=== PATIENT | male | born 1970 | race Caucasian/White ===

== ENCOUNTER → 2017-08-24 10:34 | Outpatient (CLI) | payer OTHER, SELFPAY ==
[2017-08-25 13:25] LABS: M R Staph aureus DNA By PCR Negative (Negative); Probe Check PASS; Specimen Processing Control PASS
== END ==
PROVIDERS: Family Provider Internal Medicine; PCP Internal Medicine; Visit Provider Internal Medicine
DX: M79.661 Pain in right lower leg (principal)
CPT/HCPCS: 87641

== ENCOUNTER → 2017-09-02 12:26 | Outpatient (CLI) | payer OTHER, SELFPAY ==
--- NOTE | 2017-09-02 12:29 | US_ITS ---
STUDY: SUPERFICIAL ULTRASOUND - LOCALIZED SUPERFICIAL ULTRASOUND OF THE POSTERIOR ANKLE. REASON FOR EXAM: Male, 47 years old. Wound above the right heel. TECHNIQUE: A superficial ultrasound was performed with real-time and static tipton-scale imaging. COMPARISON: None. FINDINGS: There is heterogeneous soft tissue thickening, 2.7 cm size, in the area of clinical concern but whether this represents hematoma, mass, inflammatory process, or even an area where the patient has previous history of muscle graft, cannot be determined. If clinically indicated, MRI may be more useful. Electronically Signed: Raul Posey MD at 16:49 EDT , Service support , US/Ext Non Vasc Limited/Soft Tiss
== END ==
PROVIDERS: Family Provider Internal Medicine; PCP Internal Medicine; Visit Provider Internal Medicine
DX: M79.661 Pain in right lower leg (principal)
CPT/HCPCS: 76882

== ENCOUNTER → 2018-05-02 12:34 | Outpatient (CLI) | payer OTHER, SELFPAY ==
--- NOTE | 2018-05-02 12:39 | MRI_ITS ---
STUDY: MRI LUMBAR SPINE WITH AND WITHOUT CONTRAST REASON FOR EXAM: Male, 47 years old. Paresthesia. Right leg pain and numbness since lumbar surgery at L5-S1 in 2016. TECHNIQUE: Standardized fat and water weighted pulse sequences were obtained in the sagittal and axial planes. 10 ml of Gadavist contrast material was administered for the contrast portion of the examination. COMPARISON: 07/02/2017. FINDINGS: T12-L1: (Sagittal only). T12 inferior endplate is partially cut off. The T12-L1 disc space is partially cut off. Normal L1 superior endplate. Normal visualized disc and hydration. Normal disc morphology. Normal central canal and bilateral intervertebral neural foramina. Normal lumbar lordosis. There is no substantial scoliosis. Normal conus medullaris that terminates at the upper L1 vertebral body level. L1-2: Normal endplates. Normal disc height, hydration and morphology. Normal bilateral facet joints. Normal central canal and bilateral lateral recesses. Normal bilateral intervertebral neural foramina. L2-3: Normal endplates. Normal disc height, hydration and morphology. Normal bilateral facet joints. Normal central canal and bilateral lateral recesses. Normal bilateral intervertebral neural foramina. L3-4: Anterior marginal spurs. Modic type II degenerative vertebral marrow fatty changes underneath the vertebral endplates. Moderately pronounced disc space height narrowing. Small posterior bulging disc. Mild central canal stenosis with an AP canal diameter of 10 mm. Normal bilateral lateral recesses. Normal facet joints. Normal bilateral intervertebral neural foramina. L4-5: Disc implant inside the disc space. Pedicular screws and rods from previous posterior decompression and fusion. Normal central canal and bilateral lateral recesses. Normal bilateral intervertebral neural foramina L5-S1: Metallic plate with transfixing screws and disc implant. Mild disc space height narrowing. Mild degenerative retrolisthesis of L5 on S1. Normal tapered narrowing of the central canal. Mild degenerative facet arthropathy. Moderate stenosis of the bilateral intervertebral neural foramina. Normal visualized sacral ala. Normal visualized paraspinous soft tissue structures. No enhancing lesions intradurally and extradurally. MRI/Spine Lumbar W/WO Contrast IMPRESSION: 1. No MRI evidence of lumbar extruded disc fragment. 2. Small L3-L4 posterior bulging disc, moderately pronounced disc space height narrowing and mild central canal stenosis. 3. Mild degenerative retrolisthesis of L5 on S1 with mild disc space height narrowing and moderate stenosis of the bilateral intervertebral neural foramina. 4. Interval placement of disc implants inside the L4-L5 and L5-S1 disc spaces. 5. Interval placement of anterior metallic plate with transfixing screw at L5-S1. 6. Interval placement of pedicular screws and rods at L4 and L5. 7. No significant interval change when compared to 05/07/2016. Electronically Signed: Chemo Quinones MD at 14:30 EST , Service support ,
== END ==
PROVIDERS: Family Provider Internal Medicine; PCP Internal Medicine; Referring Provider Internal Medicine; Visit Provider Internal Medicine
DX: R20.2 Paresthesia of skin (principal)
CPT/HCPCS: 72158; A9585

== ENCOUNTER → 2018-06-10 13:24 | Outpatient (CLI) | payer SELFPAY ==
--- NOTE | 2018-06-10 13:32 | CT_ITS ---
STUDY: CT CHEST WITHOUT CONTRAST REASON FOR EXAM: Male, 47 years old. Family history of cardiovascular disease RADIATION DOSAGE (If Supplied By Facility): CTDIvol = ( 12.19 ) mGy, DLP = ( 292.55 ) mGycm TECHNIQUE: Transaxial imaging was performed without the administration of intravenous contrast material. Individualized dose optimization techniques were used for this CT. COMPARISON: None. FINDINGS: The lungs are normal in their visualized extent. There is no demonstrated pleural abnormality. Heart size is normal. Small volume pericardial effusion. Mild degree of atherosclerosis seen in the LAD and circumflex territories. Agatston score reported as 37.0 (75th percentile). Normal mediastinum. Normal hilar regions. Normal unenhanced pulmonary arteries. Normal aorta arch and descending thoracic aorta. Normal visualized osseous structures. There is no demonstrated abnormality of the visualized upper abdomen. CT/Limited Chest CT w/CCTA IMPRESSION: 1. Trace pericardial effusion. 2. Coronary artery atherosclerosis. 3. No pulmonary nodule/mass. Electronically Signed: Sherman Moncada MD at 9:45 EST , Service support ,
[2018-06-10 13:43] VITALS: BP 134/93; PULSE 70; RESP 18; O2SAT 99; BMI 30.2
--- NOTE | 2018-06-10 15:41 | CA.SCORE ---
Calcium Scoring Date of Study:: 06/10/18 Coronary Calcium Scoring: Coronary calcium scoring. High-resolution computed tomographic imaging of the chest was performed on 06/10/2018 with particular attention paid to the coronary arteries. Images from the examination were analyzed for the presence and extent of coronary artery calcification using the coronary calcification quantification software. The patient tolerated the procedure well and there were no complications. The results of the coronary calcification analysis are provided below; Coronary artery Left main score 0 Left anterior descending artery score 2.1 Left circumflex artery score 34.8 Right coronary artery score 0 Total calcium score with a Agagston scale 37. The above places the patient at the 75 percentile ranking for age and sex. The above is indicative of minimal atherosclerotic plaquing suggesting that significant coronary artery disease is very unlikely.
== END ==
PROVIDERS: Family Provider Internal Medicine; PCP Internal Medicine; Referring Provider Internal Medicine; Visit Provider Internal Medicine
DX: Z82.49 Family history of ischemic heart disease and other diseases of the circulatory system (principal)
CPT/HCPCS: 75571; 76380

== ENCOUNTER → 2019-05-05 12:32 | Outpatient (CLI) | payer OTHER, SELFPAY ==
[2018-06-10 13:43] VITALS: BMI 30.2
--- NOTE | 2019-05-05 12:36 | RAD_ITS ---
STUDY: X-RAY - LUMBAR SPINE REASON FOR EXAM: Male, 48 years old. RIGHT SIDE PAIN AND WEAKNESS. RECENT LAMINECTOMY, HX OF A SPINAL FUSION WELL. TECHNIQUE: 5 view(s) of the lumbar spine were obtained. COMPARISON: None FINDINGS: Normal lumbar lordosis. There is no substantial scoliosis. There is a normal alignment of the vertebrae. The patient is status post anterior fusion from L4 to S1 with anterior screw at the anterior aspect of the L4 and S1. There is multilevel endplate spondylosis of the lumbar vertebrae. There is narrowing of disc space at L3-L4. There is no demonstrated fracture. There is disc prosthesis at L4-L5. The soft tissue structures are unremarkable. RAD/L/S Spine Min 4 Views IMPRESSION: Postoperative changes at L4-S1. Spondylosis/degenerative disease more severe at L3-L4. No acute fracture or spondylolisthesis. Electronically Signed: Mariela Ewing MD at 1:22 EST , Service support ,
== END ==
PROVIDERS: Family Provider Internal Medicine; PCP Internal Medicine; Referring Provider Internal Medicine; Visit Provider Internal Medicine
DX: M48.062 Spinal stenosis, lumbar region with neurogenic claudication (principal)
CPT/HCPCS: 72110

== ENCOUNTER → 2019-06-02 06:03 | Outpatient (CLI) | payer OTHER, SELFPAY ==
[2018-06-10 13:43] VITALS: BMI 30.2
--- NOTE | 2019-06-02 12:25 | NEURO ---
NCS and/or EMG Patient Report Ordering Doctor: Susanne Gutierres DATE OF SERVICE: 06/02/19 Abisai Holley is a 48-year-old male presents for electrodiagnostic testing of the right lower limb. He reports numbness and tingling in the right foot with a burning sensation. Symptoms are aggravated with prolonged standing and walking. He reports having spinal surgery in the past. Electrodiagnostic findings: Right peroneal motor nerve demonstrates normal distal latency with reduced amplitude and normal conduction velocity. Normal right tibial motor response. H reflex normal bilaterally. Prolonged right tibial F wave is noted. Sensory latencies are prolonged in the right sural and right medial plantar nerves. Needle EMG testing reveals 1+ fibrillations in the right anterior tibialis and right peroneus longus. There is a decreased recruitment pattern in the right anterior tibialis. 1+ polyphasic motor units in the right peroneus longus and right gastrocnemius. 1+ fibrillations are noted in the right lumbar paraspinals. Electrodiagnostic impression: This is an abnormal study in the right lower limb. 1. 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 Would consider correlation with lumbar spine imaging. If there are any further questions, please do not hesitate to contact me.
== END ==
PROVIDERS: Family Provider Internal Medicine; PCP Internal Medicine; Referring Provider Internal Medicine; Visit Provider Internal Medicine
DX: R20.2 Paresthesia of skin (principal)
CPT/HCPCS: 95886; 95910

== ENCOUNTER → 2019-10-06 | Outpatient (CLI) | payer OTHER, SELFPAY ==
[2018-06-10 13:43] VITALS: BMI 30.2
--- NOTE | 2019-10-06 10:00 | RAD_ITS ---
STUDY: X-RAY - LEFT SHOULDER REASON FOR EXAM: Male, 49 years old. FELL INTO DITCH WHILE WALKING DOG TECHNIQUE: 4 view(s) of the shoulder. COMPARISON: None. FINDINGS: Normal glenohumeral articulation. Normal acromioclavicular joint. Normal acromion. Normal humeral head and visualized proximal humerus. The soft tissue structures are unremarkable. Normal visualized pulmonary apex. RAD/Shoulder min 2 Views IMPRESSION: Normal x-ray examination of the shoulder. Electronically Signed: Kyle Larson, at 10:27 EDT , Service support ,
== END | disposition home or self-care (01) ==
LOC: HPRAD 09:57
PROVIDERS: PCP Internal Medicine; Referring Provider Internal Medicine; Visit Provider Internal Medicine
DX: M25.512 Pain in left shoulder (principal)
CPT/HCPCS: 73030

== ENCOUNTER → 2020-07-26 12:52 | Outpatient (CLI) | payer OTHER, SELFPAY ==
[2018-06-10 13:43] VITALS: BMI 30.2
--- NOTE | 2020-07-26 12:57 | CT_ITS ---
STUDY: CTA CHEST REASON FOR EXAM: Male, 50 years old. CHEST PAIN RADIATION DOSAGE (If Supplied By Facility): CTDIvol = ( 11.6 ) mGy, DLP = ( 516.61 ) mGycm TECHNIQUE: The examination was performed with the intravenous administration of IV 100mL Isovue-370. Post-processing of the angiographic images was performed, with multiplanar reformation and 3D reconstruction. Individualized dose optimization techniques were used for this CT. COMPARISON: Comparison is made with prior examination dated 06/10/2018. FINDINGS: Normal enhancement of the main pulmonary artery and right and left pulmonary arteries. Normal enhancement of the bilateral peripheral pulmonary arteries. There is no demonstrated pulmonary embolism. Normal thoracic aorta and visualized great vessels. There is no demonstrated aortic dissection. Normal heart and pericardium. Normal mediastinum. Normal hilar regions. Normal visualized trachea and bronchi. The lungs are well expanded. Normal pulmonary parenchyma. Normal pleura. Normal chest wall structures. Normal osseous structures. Normal visualized upper abdomen. CT/CTA Chest W/WO Contrast IMPRESSION: Normal CTA chest examination, without a demonstrated pulmonary embolism or arterial dissection. Electronically Signed: Kyle Larson MD at 13:45 EDT , Service support ,
--- NOTE | 2020-07-26 13:18 | VDLE_ITS ---
Reason For Study: Right leg swelling RIGHT GSV is normal. CFV is compressible, spontaneous, phasic, competent and demonstrates normal augmentation. FV is compressible, spontaneous, phasic, competent and demonstrates normal augmentation. POP V is compressible, spontaneous, phasic, competent and demonstrates normal augmentation. T/P Trunk is compressible. PTV is compressible. RT PerV is compressible. Nonvascular structure noted in the right proximal calf measuring approximently 2.24 x 1.99 cm. Procedure This is a venous duplex using B-mode, color flow and spectral Doppler. Exam performed in department. A preliminary report was called and/or faxed to [facility]. Interpretation Summary There is no evidence of right lower extremity deep vein thrombosis. Right great saphenous vein appears patent and compressible segmentally. Complex solid cystic non-vascular structure right proximal calf 2.24 x 1.99cm. Clinical correlation would be appropriate. Ordering Physician: Susanne Gutierres Referring Physician: Susanne Gutierres Performed By: Mary Lou Jarrett RVT
== END ==
PROVIDERS: PCP Internal Medicine; Referring Provider Internal Medicine; Visit Provider Internal Medicine
DX: M79.89 Other specified soft tissue disorders (principal); R07.9 Chest pain, unspecified
CPT/HCPCS: 71275; 93971; Q9967

== ENCOUNTER 2021-08-04 09:30 | Outpatient (RCR) | payer OTHER, SELFPAY ==
--- NOTE | 2021-07-09 11:04 | HP.PTEVAL_ITS ---
Patient's Visit Information VISHNU STRICKLAND is a 51 year old M referred to Physical Therapy by Dr. Susanne Gutierres MD with a diagnosis of L shoulder strain. Date of Evaluation: 07/09/21 Physical Therapist: Phong Amaya, PT, ATC - Visit Plan Frequency: 2-3x /Week Duration: 4-6 Weeks Plan: L shoulder rotator cuff strengthening, scap stab ex's, UBE, and HEP - Subjective Pt reports he injured his L shoulder a couple years ago while walking his dog. Pt notes his dog pulled really hard as it saw something, and pt notes he had severe pain afterwards. Pt notes he was treated by his doctor with cortisone injections and ex's and slowly felt a little better. Pt notes the same episode occurred 2 months ago which caused all of his pain to return. Pt notes he was attempting to lift his tool bucket at work 2 weeks ago which resulted in a popping sensation in the L shoulder. Pt also notes he has fallen on the ice a couple of times recently. Pt notes ail of this has resulted in pain. Pt is L hand dominant. Pt notes he had x-rays which revealed OA. Pt notes his doctor is currently in the process of ordering an MRI. No PMHx of L shoulder pain in the past. Occasional tingling and numbness in L UE. Pt denies neck pain at this time. Pt notes he has trouble washing his hair and combing his hair. Pt reports his L shoulder clicks on him. No locking up, giving out. 1/10 pain at rest, 8/10 pain at worst - Pain L shoulder Pain Intensity (Out of 10): 1 Pain Intensity Range: 8 - Objective Neuro: B UE sensation is WNL to light touch. B bicepital reflex= 1/3. Palpation: Minor tenderness on anterior GH joint. No obvious deformity. severe pain throughout all scapular musculature. ROM: R shoulder flex= 155, abd= 135, ER= 20, IR WNL; L shoulder flex= 125, abd= 80, ER 10 degrees IR minimally limited. MMT: L shoulder 3+/5 throughout and painful in all ranges. Special tests: all negative this date - Balance/Special Test Scores Quick DASH Score: 52.2725 - Goals Goal 1:: Decrease L shoulder pain x 50% to aid with sleep Goal Time Frame: 4-6 Weeks Goal 2:: Increase L shoulder strength x 1 grade to aid with work requirements Goal Time Frame: 4-6 Weeks Goal 3:: Increase L shoulder flex and abd ROM x 20 degrees to aid with IADL's Goal Time Frame: 4-6 Weeks Goal 4:: I with HEP Goal Time Frame: 4-6 Weeks - Rehabilitation Potential Physical Therapy Diagnosis: L shoulder pain, weakness, and limited ROM secondary to L shoulder strain Rehabilitation Potential: Good - Anticipated Interventions Patient/Client Instruction: Educate patient on: Condition, Plan of Care For the Purpose of:: To improve self management Therapeutic Exercise to Include: Strength training, Endurance training, Body mechanics, Flexibilty training, Active ROM, Scapular Strength/Stabilization For the Purpose of:: To decrease pain, To increase ROM, To improve muscle performance and motor function Manual Therapy Techniques to Include: Soft tissue mobilization For the Purpose of:: To decrease pain, To increase ROM Thank you for the opportunity to evaluate your patient. For Medicare and Medicare HMO plans, please review the plan of care and approve it. It will need to be FAXED BACK to us at [phone] for Medicare purposes. For Medicare only, by signing this I certify the plan of care. Please let me know if there are questions or concerns regarding this plan of care. Physician Signature: Dat e:
--- NOTE | 2021-08-04 11:29 | HP.PTDCSUM ---
It has been my pleasure to treat VISHNU STRICKLAND referred by Dr. Susanne Gutierres MD, with the diagnosis of L shoulder strain for a total of 8 visit(s). Discharge Date: Please see the following information for a summary of their discharge status. Subjective: Pt reports he continues to have pain with overhead activity. L shoulder Pain Intensity (Out of 10): 1 Objective/Function: L shoulder pain is currently 1/10, increases to 7/10 with overhead lifting. L shoulder MMT: 4/5 throughout with exception to ER 3+/5 and painful. L shoulder ROM: flex= 150, abd= 150 degrees. Pt is I with HEP Goal 1:: Decrease L shoulder pain x 50% to aid with sleep Goal Progress: Goal Met Goal 2:: Increase L shoulder strength x 1 grade to aid with work requirements Goal Progress: Progressing Goal 3:: Increase L shoulder flex and abd ROM x 20 degrees to aid with IADL's Goal Progress: Goal Met Goal 4:: I with HEP Goal Progress: Goal Met Plan: Discontinued to HEP. Pt to follow up with Dr if pain doesnt subside If there are questions or concerns regarding this patient's physical therapy, please feel free to call me at [phone]. Thank you for the referral of this patient. Sincerely, Phong Amaya, PT, ATC Balance/Gait/Functional tests - Balance/Special Test Scores Quick DASH Score: 25.0000
== END 2021-08-04 12:47 | disposition home or self-care (01) ==
LOC: PT 09:30
PROVIDERS: PCP Internal Medicine; Referring Provider Internal Medicine; Visit Provider Internal Medicine
DX: M25.512 Pain in left shoulder (principal)
CPT/HCPCS: 97110; 97140; 97161; 97164